=== PATIENT | female | born 1970 ===

== ENCOUNTER 2016-08-01 09:05 | Outpatient (CLI) | payer BC ==
--- NOTE | 2016-08-02 08:57 | Mammography Report ---
BILATERAL DIGITAL SCREENING MAMMOGRAM with CAD: 08/01/16 09:05:00 CLINICAL: Routine screening. COMPARISON:08/01/15 FINDINGS: The breasts are heterogeneously dense, which may obscure small masses. Right upper outer focal asymmetry requires additional imaging.No architectural distortion or suspicious calcifications.The left breast is negative. IMPRESSION: Right asymmetry requiring further workup. BI-RADS CATEGORY: 0 -- Additional Imaging Evaluation Required RECOMMENDATION: Recall for right lateralmedial , spot compression CC and MLO views and right breast ultrasound if needed. ACR BI-RADS MAMMOGRAPHIC CODES: 0 = Needs additional imaging evaluation; 1 = Negative; 2 = Benign; 3 = Probably benign; 4 = Suspicious; 5 = Malignant; 6 = Known biopsy-proven malignancy COMMENT: 1. Dense breast tissue, i.e., adenosis, fibrocystic changes, etc., may obscure an underlying neoplasm. 2. Approximately 10% of cancers are not detected with mammography. 3. A negative mammography report should not delay biopsy if a clinically suspicious mass is present. COMMENT: Patient follow-up letters are generated via our [employer] application.
== END 2016-08-01 09:06 | disposition home or self-care (01) ==
LOC: SPVWC 09:05
PROVIDERS: ATTEND Internal Medicine
DX: Z12.31 Encounter for screening mammogram for malignant neoplasm of breast (principal)
CPT/HCPCS: 77067; G0202

== ENCOUNTER 2016-08-23 08:10 | Outpatient (CLI) | payer BC ==
--- NOTE | 2016-08-23 08:37 | Mammography Report ---
RIGHT DIGITAL DIAGNOSTIC MAMMOGRAM : 08/23/16 08:10:00 CLINICAL: Recalled for asymmetry. COMPARISON:08/01/16 screening FINDINGS: Lateralmedial and spot compression MLO and CC views were performed. Satisfactory effacement of asymmetries on the spot views. The lateral view is negative. IMPRESSION: Negative Mammogram. BI-RADS CATEGORY: 1 -- Negative RECOMMENDATION: Routine mammographic screening in one year. ACR BI-RADS MAMMOGRAPHIC CODES: 0 = Needs additional imaging evaluation; 1 = Negative; 2 = Benign; 3 = Probably benign; 4 = Suspicious; 5 = Malignant; 6 = Known biopsy-proven malignancy COMMENT: 1. Dense breast tissue, i.e., adenosis, fibrocystic changes, etc., may obscure an underlying neoplasm. 2. Approximately 10% of cancers are not detected with mammography. 3. A negative mammography report should not delay biopsy if a clinically suspicious mass is present. COMMENT: Patient follow-up letters are generated via our [email or web address] application.
== END 2016-08-23 08:11 | disposition home or self-care (01) ==
LOC: SPVWC 08:10
PROVIDERS: ATTEND Internal Medicine
DX: R92.8 Other abnormal and inconclusive findings on diagnostic imaging of breast (principal)
CPT/HCPCS: G0206-RT